=== PATIENT | female | born 1950 | race Caucasian/White ===

== ENCOUNTER 2021-06-28 09:10 | Day surgery (SDC) | payer OTHER, BC ==
[2021-06-28 12:50] VITALS: TEMP 97.3
[2021-06-28 12:54] VITALS: BP 114/60; PULSE 77
== END 2021-06-28 12:35 | disposition home or self-care (01) ==
LOC: FASU-ENDO 09:10
PROVIDERS: ATTEND Internal Medicine Gastroenterology
PROC: 0DB98ZX Excision of Duodenum, Via Natural or Artificial Opening Endoscopic, Diagnostic (ICD-10-PCS; 2021-06-28)
PROC: 0DB68ZX Excision of Stomach, Via Natural or Artificial Opening Endoscopic, Diagnostic (ICD-10-PCS; 2021-06-28)
PROC: 0DJD8ZZ Inspection of Lower Intestinal Tract, Via Natural or Artificial Opening Endoscopic (ICD-10-PCS; principal; 2021-06-28 11:08)
DX: Z86.010 Personal history of colon polyps (principal); K57.30 Diverticulosis of large intestine without perforation or abscess without bleeding; K29.50 Unspecified chronic gastritis without bleeding; K44.9 Diaphragmatic hernia without obstruction or gangrene
CPT/HCPCS: 43239; G0105; 88305-TC; 88342-TC